=== PATIENT | male | born 1950 | race Caucasian/White ===

== ENCOUNTER 2017-07-22 14:24 | Emergency (ER) | payer MEDICARE, OTHER ==
[~2017-07-22] VITALS: Ht 177.8 cm; Wt 90.7 kg
[~2017-07-22 14:24] MED LIST: ADVAIR 250-501 EACH INH; ADVAIR 500-501 EACH INH; ALBUTEROL SULF8.5 GM INH; ASPIRIN EC81 MG PO; DALIRESP500 MCG PO; DOXYCYCLINE HY100 M3 PO; LAMISIL250 MG PO; PREDNISONE10 MG PO; PREDNISONE5 MG PO; SPIRIVA18 MCG INH; TAMSULOSIN HCL0.4 MG PO
== END 2017-07-22 16:56 | disposition home or self-care (01) ==
LOC: ED 14:24
PROC: 2Y41X5Z Packing of Nasal Region using Packing Material (ICD-10-PCS; principal; 2017-07-22)
DX: R04.0 Epistaxis (principal); J44.9 Chronic obstructive pulmonary disease, unspecified; Z87.891 Personal history of nicotine dependence; Z88.0 Allergy status to penicillin; Z88.1 Allergy status to other antibiotic agents; Z79.899 Other long term (current) drug therapy; Z79.52 Long term (current) use of systemic steroids; Z79.82 Long term (current) use of aspirin
CPT/HCPCS: 30903; 85025; 99283